=== PATIENT | female | born 1945 | race Caucasian/White ===

== ENCOUNTER 2021-10-02 16:01 | Inpatient (IN) | payer MEDICARE, OTHER ==
[~2021-10-02] VITALS: Ht 165.1 cm; Wt 98.0 kg
[2021-10-02] MEDS ORDERED: IOHEXOL 300 MG/ML 100ML BOTTLE IJ ONE (16:25)
[2021-10-02 18:23] LABS: Basophils # (auto) 0 10 ^3/uL (0-0.2); Basophils % (auto) 0.3 % (0.0-2.0); Eosinophils # (auto) 0 10 ^3/uL (0-0.8); Hematocrit 27.4 % (36.0-46.0); Hemoglobin 8.8 g/dL (12.2-16.2); Lymphocytes # (auto) 0.1 10 ^3/uL (0.4-5.4); Lymphocytes % (auto) 1.1 % (10.0-50.0); Mean Corpuscular Hemoglobin 29.3 pg (28.0-32.0); Mean Corpuscular Hgb Conc. 32.3 g/dL (32.0-36.0); Mean Corpuscular Volume 90.8 fL (80.0-100.0); Monocytes # (auto) 0.2 10 ^3/uL (0-1.3); Monocytes % (auto) 1.7 % (0.0-12.0); Neutrophils # (auto) 10.8 10 ^3/uL (1.6-8.6); Neutrophils % (auto) 96.9 % (37.0-80.0); Red Blood Cells 3.01 10^6/uL (4.0-5.20); Red Cell Distribution Width 19.6 % (11.8-14.3); White Blood Cell 11.2 10^3/uL (4.4-10.8)
[2021-10-02 18:37] LABS: INR 1.32 (0.9-1.15); Partial Thromboplastin Time 30.5 sec (23.6-33.0)
[2021-10-02 18:40] LABS: Calcium 8.5 mg/dL (8.5-10.1); Magnesium 2.1 mg/dL (1.6-2.6); Potassium 3.8 mmol/L (3.5-5.1)
[2021-10-02 18:47] LABS: BUN/Creatinine Ratio 24.6; Bilirubin, Total 1.3 mg/dL (0.2-1.0); Total Protein 6.3 g/dL (6.4-8.2)
[2021-10-02] MEDS ORDERED: ASPirin 325 MG TAB PO ONE (19:30)
[2021-10-02] MEDS ORDERED: METOPROLOL SUCCINATE XL 50 MG TAB PO ONE (20:15)
[2021-10-02] MEDS ORDERED: ONDANSETRON HCL 4 MG/2 ML VIAL IV ONE (22:15)
[2021-10-02] MEDS ORDERED: dilTIAZem 25 MG/5 ML VIAL IV ONE ×2 (22:15→22:31)
[2021-10-02] MEDS ORDERED: ONDANSETRON HCL 4 MG/2 ML VIAL ONE (22:16)
[2021-10-02] MEDS ORDERED: HEPARIN DRIP/D5W 100UNITS/ML 250 ML IV SCH (22:30)
[2021-10-02] MEDS ORDERED: MORPHINE SULFATE 4 MG/ML SYR/VIAL IV PRN (22:30)
[2021-10-02] MEDS ORDERED: MORPHINE SULFATE INJECTION 2 MG/ML SYRG IV PRN (22:30)
[2021-10-02] MEDS ORDERED: ONDANSETRON HCL 4 MG/2 ML VIAL IV PRN ×2 (22:30)
[2021-10-02] MEDS ORDERED: NITROGLYCERIN 0.4 MG SL TAB SL PRN ×2 (22:30)
[2021-10-02] MEDS ORDERED: CLOPIDOGREL 300 MG TAB PO ONE (22:30)
[2021-10-02] MEDS: METOPROLOL TARTRATE 50 MG TAB PO SCH (22:30)
[2021-10-02] MEDS ORDERED: DEXTROSE (50%) 50ML SYRG IV PRN (22:45)
[2021-10-02] MEDS ORDERED: CEFEPIME 2 GM in SODIUM CHL 0.9% 50 ML IV ONE (23:15)
[2021-10-02] MEDS ORDERED: AMIODARONE HCL 150 MG in D5W 5% 100 ML IV ONE (23:15)
[2021-10-02] MEDS ORDERED: AMIODARONE 450mg/250ml AE 250 ML IV SCH (23:15)
[2021-10-02] MEDS ORDERED: SODIUM CHLORIDE 0.9% 500 ML IV ONE (23:15)
[2021-10-03 00:02] LABS: Urine Bacteria FEW /hpf (None Seen); Urine Blood Negative /uL (Negative); Urine Budding Yeast MANY /hpf (None Seen); Urine Hyaline Cast FEW /lpf (0 - 2); Urine Mucus FEW (None Seen); Urine WBC 15 /hpf (0 - 5); Urine WBC Clumps PRESENT /hpf (None Seen)
[2021-10-03] MEDS ORDERED: AMIODARONE HCL (50 MG/ ML) 3 ML VIAL IV ONE (00:14)
[2021-10-03] MEDS ORDERED: FLUCONAZOLE 200MG/100ML 100 ML IV ONE (00:15)
[2021-10-03] MEDS: ACETAMINOPHEN 325 MG TAB PO PRN (00:17)
[2021-10-03] MEDS ORDERED: ACETAMINOPHEN 650 MG RECT SUPP PR ONE (00:30)
[2021-10-03] MEDS ORDERED: SODIUM CHLORIDE 0.9% 500 ML IV ONE (00:30)
[2021-10-03] MEDS ORDERED: NOREPINEPHRINE 8 MG/250ML KIT 250 ML IV ONE (02:50)
[2021-10-03] MEDS ORDERED: NOREPINEPHRINE 8 MG/250ML KIT 250 ML IV SCH (03:00)
[2021-10-03 07:04] LABS: Basophils # (auto) 0 10 ^3/uL (0-0.2); Basophils % (auto) 0.1 % (0.0-2.0); Eosinophils # (auto) 0 10 ^3/uL (0-0.8); Hemoglobin 9.7 g/dL (12.2-16.2); Lymphocytes # (auto) 0.1 10 ^3/uL (0.4-5.4); Lymphocytes % (auto) 1.3 % (10.0-50.0); Mean Corpuscular Hemoglobin 29.7 pg (28.0-32.0); Mean Corpuscular Hgb Conc. 33.4 g/dL (32.0-36.0); Mean Corpuscular Volume 89.1 fL (80.0-100.0); Monocytes # (auto) 0.3 10 ^3/uL (0-1.3); Monocytes % (auto) 3.1 % (0.0-12.0); Neutrophils # (auto) 10.2 10 ^3/uL (1.6-8.6); Neutrophils % (auto) 95.5 % (37.0-80.0); Red Blood Cells 3.25 10^6/uL (4.0-5.20); Red Cell Distribution Width 19.3 % (11.8-14.3); White Blood Cell 10.7 10^3/uL (4.4-10.8)
[2021-10-03 07:16] LABS: Calcium 8.3 mg/dL (8.5-10.1); Magnesium 2.1 mg/dL (1.6-2.6)
[2021-10-03 07:20] LABS: BUN/Creatinine Ratio 24.3; Bilirubin, Total 1.5 mg/dL (0.2-1.0); Total Protein 6.3 g/dL (6.4-8.2)
[2021-10-03] MEDS ORDERED: CEFEPIME 1 GM in SODIUM CHL 0.9% 50 ML IV SCH (08:00)
[2021-10-03] MEDS: ACCU-CHEK COMFORT CURVE STRIP VI SCH ×4 (08:18→22:03)
[2021-10-03] MEDS: CEFEPIME 1 GM in SODIUM CHL 0.9% 50 ML IV SCH (08:19)
[2021-10-03 08:39] LABS: INR 1.48 (0.9-1.15); Partial Thromboplastin Time 47.4 sec (23.6-33.0)
[2021-10-03] MEDS: InsuLIN REG 1unit/0.01ml Soln (100units/ml) SC SCH ×4 (09:03→22:03)
[2021-10-03] MEDS ORDERED: HEPARIN DRIP/D5W 100UNITS/ML 250 ML IV SCH (09:15)
[2021-10-03] MEDS ORDERED: LOSARTAN POTASSIUM 25 MG TAB PO SCH (10:00)
[2021-10-03] MEDS: ASPirin 81 mg TAB PO SCH ×2 (10:00→11:19)
[2021-10-03] MEDS: DOCUSATE SOD 100 MG CAP PO SCH ×2 (10:00→11:19)
[2021-10-03] MEDS: METOPROLOL TARTRATE 50 MG TAB PO SCH ×2 (10:00→21:20)
[2021-10-03] MEDS ORDERED: CLOPIDOGREL BISULFATE 75 MG TAB PO SCH (10:00)
[2021-10-03] MEDS: PANTOPRAZOLE 40 MG TAB PO SCH (11:19)
[2021-10-03] MEDS: FLUCONAZOLE 100 MG TAB PO SCH (11:20)
[2021-10-03 13:00] VITALS: BP 105/61
[2021-10-03] MEDS ORDERED: FUROSEMIDE 20 MG/2 ML VIAL IV ONE (13:15)
[2021-10-03] MEDS ORDERED: DOBUTamine 1000MCG/ML 250 ML IV SCH (13:15)
[2021-10-03] MEDS ORDERED: METO-158 PO (14:07)
[2021-10-03] MEDS ORDERED: VALS40TA2 PO (14:07)
[2021-10-03] MEDS ORDERED: DAPA1TAB4 PO (14:07)
[2021-10-03] MEDS ORDERED: DIGO0.1220 PO (14:07)
[2021-10-03] MEDS ORDERED: GLIP5TAB12 PO (14:07)
[2021-10-03] MEDS: DOBUTamine 1000MCG/ML 250 ML IV SCH (15:31)
[2021-10-03 16:19] LABS: INR 1.29 (0.9-1.15); Partial Thromboplastin Time 33.6 sec (23.6-33.0)
[2021-10-03] MEDS ORDERED: dilTIAZem 25 MG/5 ML VIAL IV ONE (16:30)
[2021-10-03 16:46] VITALS: BP 116/53
[2021-10-03 16:54] VITALS: BP 107/56
[2021-10-03] MEDS: FUROSEMIDE 20 MG/2 ML VIAL IV SCH (18:00)
[2021-10-03 18:50] VITALS: BP 122/68
[2021-10-03] MEDS: AMIODARONE HCL 200 MG TAB PO SCH (21:19)
[2021-10-03] MEDS: ATORVASTATIN 20 MG TAB PO SCH (21:20)
[2021-10-03 22:00] VITALS: BP 94/54
[2021-10-04] VITALS (13 sets, daily range): BP systolic 80–122; BP diastolic 51–66
[2021-10-04] MEDS: DOBUTamine 1000MCG/ML 250 ML IV SCH ×3 (00:31→10:47)
[2021-10-04] MEDS ORDERED: METOPROLOL TARTRATE 1MG/1ML-5ML VIAL IV ONE (02:15)
[2021-10-04] MEDS: ACETAMINOPHEN 325 MG TAB PO PRN (04:06)
[2021-10-04 05:46] LABS: Basophils # (auto) 0 10 ^3/uL (0-0.2); Basophils % (auto) 0.4 % (0.0-2.0); Eosinophils # (auto) 0 10 ^3/uL (0-0.8); Eosinophils % (auto) 0.1 % (0.0-7.0); Hematocrit 25.7 % (36.0-46.0); Hemoglobin 8.7 g/dL (12.2-16.2); Lymphocytes # (auto) 0.1 10 ^3/uL (0.4-5.4); Lymphocytes % (auto) 1.5 % (10.0-50.0); Mean Corpuscular Hemoglobin 29.4 pg (28.0-32.0); Mean Corpuscular Volume 86.3 fL (80.0-100.0); Monocytes # (auto) 0.3 10 ^3/uL (0-1.3); Monocytes % (auto) 4.9 % (0.0-12.0); Neutrophils # (auto) 4.9 10 ^3/uL (1.6-8.6); Neutrophils % (auto) 93.1 % (37.0-80.0); Nucleated Red Blood Cells % 0.5 %; Red Blood Cells 2.98 10^6/uL (4.0-5.20); Red Cell Distribution Width 19.3 % (11.8-14.3); White Blood Cell 5.2 10^3/uL (4.4-10.8)
[2021-10-04 06:02] LABS: INR 1.16 (0.9-1.15); Partial Thromboplastin Time 29.9 sec (23.6-33.0)
[2021-10-04 06:04] LABS: BUN/Creatinine Ratio 24.5; Calcium 8.3 mg/dL (8.5-10.1); Phosphorus 2.8 mg/dL (2.5-4.90); Potassium 3.6 mmol/L (3.5-5.1)
[2021-10-04] MEDS: InsuLIN REG 1unit/0.01ml Soln (100units/ml) SC SCH ×4 (06:23→22:41)
[2021-10-04] MEDS: FUROSEMIDE 20 MG/2 ML VIAL IV SCH (06:23)
[2021-10-04] MEDS: ACCU-CHEK COMFORT CURVE STRIP VI SCH ×4 (06:24→22:15)
[2021-10-04] MEDS: CEFEPIME 1 GM in SODIUM CHL 0.9% 50 ML IV SCH (08:48)
[2021-10-04] MEDS ORDERED: POTASSIUM CHL 20 Meq TABLET PO ONE (09:00)
[2021-10-04] MEDS: ASPirin 81 mg TAB PO SCH (10:00)
[2021-10-04] MEDS: DOCUSATE SOD 100 MG CAP PO SCH (10:00)
[2021-10-04] MEDS: AMIODARONE HCL 200 MG TAB PO SCH ×2 (10:11→22:39)
[2021-10-04] MEDS: FLUCONAZOLE 100 MG TAB PO SCH (10:11)
[2021-10-04] MEDS: PANTOPRAZOLE 40 MG TAB PO SCH (10:12)
[2021-10-04] MEDS ORDERED: CHOL20007 PO (10:48)
[2021-10-04] MEDS ORDERED: VITA400T4 PO (10:48)
[2021-10-04] MEDS ORDERED: DAPA1TAB4 PO (10:48)
[2021-10-04] MEDS ORDERED: METO-158 PO (10:48)
[2021-10-04] MEDS ORDERED: VALS1TAB57 PO (10:48)
[2021-10-04] MEDS ORDERED: DIGO0.1220 PO (10:48)
[2021-10-04] MEDS ORDERED: GLIP5TAB12 PO (10:48)
[2021-10-04] MEDS: DIGOXIN 0.125 MG TAB PO SCH (11:00)
[2021-10-04] MEDS: dilTIAZem HCL 180MG ER CAP PO SCH (11:16)
[2021-10-04] MEDS ORDERED: MICAFUNGIN SODIUM 100 MG in SODIUM CHL 0.9% 100 ML IV ONE (11:30)
[2021-10-04] MEDS ORDERED: IOHEXOL 350 MG/ML 100ML IJ ONE (13:00)
[2021-10-04] MEDS ORDERED: fentaNYL CITRATE 100 MCG/2 ML VL ONE (13:16)
[2021-10-04] MEDS ORDERED: MIDAZOLAM HCL 2MG/2ML 2ml VIAL (1mg/ml) ONE (13:16)
[2021-10-04] MEDS ORDERED: LIDOCAINE 2%HCL (LOCAL ANESTH.) INJ 20ML MDV ONE (13:34)
[2021-10-04] MEDS: POTASSIUM CHL 10MEQ/50ML 50 ML IV SCH ×4 (16:28→22:15)
[2021-10-04] MEDS: Glucerna Carbsteady SHAKE Vanilla 8oz PO SCH (18:00)
[2021-10-04 20:47] LABS: Urine Bacteria MANY /hpf (None Seen); Urine Blood 3+ /uL (Negative); Urine Budding Yeast MODERATE /hpf (None Seen); Urine Mucus FEW (None Seen); Urine Specific Gravity 1.032 (1.001-1.035); Urine WBC 78 /hpf (0 - 5); Urine WBC Clumps PRESENT /hpf (None Seen)
[2021-10-04 21:06] LABS: Protein, Urine 244.5 mg/dL (0.0-11.9)
[2021-10-04] MEDS: ATORVASTATIN 20 MG TAB PO SCH (22:40)
[2021-10-05] MEDS: DOBUTamine 1000MCG/ML 250 ML IV SCH (03:22)
[2021-10-05 05:00] VITALS: BP 123/67
[2021-10-05 06:03] LABS: Basophils # (auto) 0 10 ^3/uL (0-0.2); Basophils % (auto) 0.2 % (0.0-2.0); Eosinophils # (auto) 0 10 ^3/uL (0-0.8); Eosinophils % (auto) 0.1 % (0.0-7.0); Hematocrit 25.6 % (36.0-46.0); Hemoglobin 8.7 g/dL (12.2-16.2); Lymphocytes # (auto) 0.2 10 ^3/uL (0.4-5.4); Lymphocytes % (auto) 2.7 % (10.0-50.0); Mean Corpuscular Hemoglobin 29.4 pg (28.0-32.0); Mean Corpuscular Volume 86.4 fL (80.0-100.0); Monocytes # (auto) 0.7 10 ^3/uL (0-1.3); Monocytes % (auto) 11.1 % (0.0-12.0); Neutrophils # (auto) 5.2 10 ^3/uL (1.6-8.6); Neutrophils % (auto) 85.9 % (37.0-80.0); Nucleated Red Blood Cells % 0.1 %; Red Blood Cells 2.97 10^6/uL (4.0-5.20); Red Cell Distribution Width 19.2 % (11.8-14.3); White Blood Cell 6.1 10^3/uL (4.4-10.8)
[2021-10-05 06:18] LABS: BUN/Creatinine Ratio 28.1; Calcium 7.8 mg/dL (8.5-10.1); Potassium 4.5 mmol/L (3.5-5.1)
[2021-10-05] MEDS: ACCU-CHEK COMFORT CURVE STRIP VI SCH ×4 (06:49→21:31)
[2021-10-05] MEDS: InsuLIN REG 1unit/0.01ml Soln (100units/ml) SC SCH ×4 (06:49→22:06)
[2021-10-05 08:00] VITALS: BP_SYST 115; BP_SYST 91; BP_DIAS 47; BP_DIAS 64
[2021-10-05] MEDS: DOCUSATE SOD 100 MG CAP PO SCH ×2 (10:00→10:12)
[2021-10-05] MEDS: MICAFUNGIN SODIUM 100 MG in SODIUM CHL 0.9% 100 ML IV SCH (10:11)
[2021-10-05] MEDS: CEFEPIME 1 GM in SODIUM CHL 0.9% 50 ML IV SCH (10:11)
[2021-10-05] MEDS: Glucerna Carbsteady SHAKE Vanilla 8oz PO SCH ×2 (10:11→17:29)
[2021-10-05] MEDS: ASPirin 81 mg TAB PO SCH (10:12)
[2021-10-05] MEDS: dilTIAZem HCL 180MG ER CAP PO SCH (10:12)
[2021-10-05] MEDS: PANTOPRAZOLE 40 MG TAB PO SCH (10:13)
[2021-10-05] MEDS: FLUCONAZOLE 100 MG TAB PO SCH (10:13)
[2021-10-05] MEDS: AMIODARONE HCL 200 MG TAB PO SCH ×2 (10:13→21:31)
[2021-10-05 12:00] VITALS: BP 116/55
[2021-10-05 16:00] VITALS: BP 115/52
[2021-10-05 20:00] VITALS: BP 123/55
[2021-10-05] MEDS: ACETAMINOPHEN 325 MG TAB PO PRN (21:31)
[2021-10-05] MEDS: ATORVASTATIN 20 MG TAB PO SCH (21:31)
[2021-10-05 22:00] VITALS: BP 123/55
[2021-10-06 05:00] VITALS: BP 111/50
[2021-10-06 05:37] LABS: Basophils # (auto) 0 10 ^3/uL (0-0.2); Basophils % (auto) 0.2 % (0.0-2.0); Eosinophils # (auto) 0 10 ^3/uL (0-0.8); Eosinophils % (auto) 0.1 % (0.0-7.0); Hematocrit 28.7 % (36.0-46.0); Hemoglobin 9.5 g/dL (12.2-16.2); Lymphocytes # (auto) 0.5 10 ^3/uL (0.4-5.4); Mean Corpuscular Hgb Conc. 33.2 g/dL (32.0-36.0); Mean Corpuscular Volume 87.6 fL (80.0-100.0); Monocytes # (auto) 1.7 10 ^3/uL (0-1.3); Monocytes % (auto) 15.1 % (0.0-12.0); Neutrophils # (auto) 9.2 10 ^3/uL (1.6-8.6); Neutrophils % (auto) 80.6 % (37.0-80.0); Red Blood Cells 3.27 10^6/uL (4.0-5.20); White Blood Cell 11.4 10^3/uL (4.4-10.8)
[2021-10-06 05:40] LABS: Red Cell Distribution Width 20.2 % (11.8-14.3)
[2021-10-06 05:54] LABS: BUN/Creatinine Ratio 26.3; Calcium 8.6 mg/dL (8.5-10.1); Magnesium 2.4 mg/dL (1.6-2.6); Potassium 4.3 mmol/L (3.5-5.1)
[2021-10-06] MEDS: ACCU-CHEK COMFORT CURVE STRIP VI SCH ×4 (06:23→21:19)
[2021-10-06] MEDS: InsuLIN REG 1unit/0.01ml Soln (100units/ml) SC SCH ×4 (06:25→21:19)
[2021-10-06 08:00] VITALS: BP 121/61
[2021-10-06] MEDS: ACETAMINOPHEN 325 MG TAB PO PRN (08:23)
[2021-10-06] MEDS: CEFEPIME 1 GM in SODIUM CHL 0.9% 50 ML IV SCH (08:54)
[2021-10-06 08:56] VITALS: BP 121/61
[2021-10-06] MEDS: ENOXAPARIN SOD 30 MG/0.3 ML SYRINGE SC SCH (10:04)
[2021-10-06] MEDS: FLUCONAZOLE 100 MG TAB PO SCH (10:05)
[2021-10-06] MEDS: dilTIAZem HCL 180MG ER CAP PO SCH (10:05)
[2021-10-06] MEDS: AMIODARONE HCL 200 MG TAB PO SCH ×2 (10:06→21:18)
[2021-10-06] MEDS: ASPirin 81 mg TAB PO SCH (10:06)
[2021-10-06] MEDS: DOCUSATE SOD 100 MG CAP PO SCH (10:06)
[2021-10-06] MEDS: PANTOPRAZOLE 40 MG TAB PO SCH (10:06)
[2021-10-06] MEDS: Glucerna Carbsteady SHAKE Vanilla 8oz PO SCH ×2 (11:20→18:19)
[2021-10-06 11:47] LABS: Urine Bacteria FEW /hpf (None Seen); Urine Blood 2+ /uL (Negative); Urine Specific Gravity 1.022 (1.001-1.035); Urine WBC 252 /hpf (0 - 5)
[2021-10-06 13:00] VITALS: BP 107/65
[2021-10-06] MEDS: MICAFUNGIN SODIUM 100 MG in SODIUM CHL 0.9% 100 ML IV SCH (13:39)
[2021-10-06 17:14] VITALS: BP 101/51
[2021-10-06] MEDS: ATORVASTATIN 20 MG TAB PO SCH (21:18)
[2021-10-06 22:00] VITALS: BP 115/43
[2021-10-07 05:00] VITALS: BP 124/46
[2021-10-07] MEDS: InsuLIN REG 1unit/0.01ml Soln (100units/ml) SC SCH ×4 (06:16→22:18)
[2021-10-07] MEDS: ACCU-CHEK COMFORT CURVE STRIP VI SCH ×4 (06:50→22:18)
[2021-10-07 08:00] VITALS: BP 122/60
[2021-10-07] MEDS: CEFEPIME 1 GM in SODIUM CHL 0.9% 50 ML IV SCH (08:00)
[2021-10-07] MEDS: Glucerna Carbsteady SHAKE Vanilla 8oz PO SCH ×2 (08:00→18:25)
[2021-10-07] MEDS: MICAFUNGIN SODIUM 100 MG in SODIUM CHL 0.9% 100 ML IV SCH (10:00)
[2021-10-07] MEDS: PANTOPRAZOLE 40 MG TAB PO SCH (10:00)
[2021-10-07] MEDS: ASPirin 81 mg TAB PO SCH (10:00)
[2021-10-07] MEDS: DIGOXIN 0.125 MG TAB PO SCH (10:00)
[2021-10-07] MEDS: AMIODARONE HCL 200 MG TAB PO SCH ×2 (10:00→22:18)
[2021-10-07] MEDS: FLUCONAZOLE 100 MG TAB PO SCH (10:00)
[2021-10-07] MEDS: ENOXAPARIN SOD 30 MG/0.3 ML SYRINGE SC SCH (10:00)
[2021-10-07] MEDS: DOCUSATE SOD 100 MG CAP PO SCH (10:00)
[2021-10-07 13:00] VITALS: BP 116/52
[2021-10-07 22:00] VITALS: BP 124/51
[2021-10-07] MEDS: ATORVASTATIN 20 MG TAB PO SCH (22:00)
[2021-10-08 05:00] VITALS: BP 116/57
[2021-10-08] MEDS: InsuLIN REG 1unit/0.01ml Soln (100units/ml) SC SCH ×4 (06:06→22:49)
[2021-10-08 06:12] LABS: Mean Corpuscular Hemoglobin 29.9 pg (28.0-32.0); Mean Corpuscular Hgb Conc. 34.5 g/dL (32.0-36.0); Mean Corpuscular Volume 86.8 fL (80.0-100.0); Red Cell Distribution Width 19.5 % (11.8-14.3); White Blood Cell 9.9 10^3/uL (4.4-10.8)
[2021-10-08] MEDS: ACCU-CHEK COMFORT CURVE STRIP VI SCH ×4 (06:21→22:49)
[2021-10-08 06:23] LABS: INR 1.16 (0.9-1.15); Partial Thromboplastin Time 28.2 sec (23.6-33.0)
[2021-10-08 06:33] LABS: Basophils % (manual) 0 (0.0-2.0); Blast Cells 0; Promyelocytes % 0; Reactive Lymphocytes 0
[2021-10-08 06:34] LABS: Chloride 104 mmol/L (98-107); Potassium 3.9 mmol/L (3.5-5.1); Sodium 130 mmol/L (136-145)
[2021-10-08 06:40] LABS: Anion Gap 8 (5-15); BUN/Creatinine Ratio 35.1; Blood Urea Nitrogen 59 mg/dL (7-18); Calcium 8.3 mg/dL (8.5-10.1); Carbon Dioxide 18 mmol/L (21-32); GFR African American 38 mL/min; GFR Non-African American 32 mL/min; Glucose 176 mg/dL (74-106)
[2021-10-08] MEDS ORDERED: MIDAZOLAM HCL 2MG/2ML 2ml VIAL (1mg/ml) IV ONE (07:45)
[2021-10-08] MEDS ORDERED: fentaNYL CITRATE 100 MCG/2 ML VL IV ONE (07:45)
[2021-10-08] MEDS ORDERED: diphenhdrAMINE HCL 50 MG/1 ML VL IV ONE (07:45)
[2021-10-08] MEDS ORDERED: LIDOCAINE VISCOUS 2% 15ML UD PO ONE (07:45)
[2021-10-08 08:00] VITALS: BP 124/60
[2021-10-08] MEDS: Glucerna Carbsteady SHAKE Vanilla 8oz PO SCH ×2 (08:00→17:24)
[2021-10-08] MEDS: CEFEPIME 1 GM in SODIUM CHL 0.9% 50 ML IV SCH ×2 (08:00→22:50)
[2021-10-08 08:55] LABS: Band Neutrophils % (manual) 3; Eosinophils % (manual) 1 (0-7); Lymphocytes % (manual) 5 (10.0-50.0); Metamyelocytes % 1; Monocytes % (manual) 9 (0-12); Myelocytes % 1
[2021-10-08 09:22] VITALS: BP 126/66
[2021-10-08] MEDS: ASPirin 81 mg TAB PO SCH (09:57)
[2021-10-08] MEDS: ENOXAPARIN SOD 30 MG/0.3 ML SYRINGE SC SCH (10:00)
[2021-10-08] MEDS: MICAFUNGIN SODIUM 100 MG in SODIUM CHL 0.9% 100 ML IV SCH (10:00)
[2021-10-08] MEDS: dilTIAZem HCL 180MG ER CAP PO SCH (10:03)
[2021-10-08] MEDS: DOCUSATE SOD 100 MG CAP PO SCH (10:10)
[2021-10-08] MEDS: PANTOPRAZOLE 40 MG TAB PO SCH (10:10)
[2021-10-08] MEDS: AMIODARONE HCL 200 MG TAB PO SCH ×2 (10:10→22:48)
[2021-10-08] MEDS: FLUCONAZOLE 100 MG TAB PO SCH (10:10)
[2021-10-08 12:21] VITALS: BP 127/58
[2021-10-08] MEDS ORDERED: LIDOCAINE 1% HCL (LOCAL ANESTH.) INJ 20ML MDV ONE (12:24)
[2021-10-08] MEDS ORDERED: BUPIVACAINE W/ EPINEPH 0.25% INJ 50ML MDV ONE (12:24)
[2021-10-08] MEDS ORDERED: PROPOFOL 10 MG/ML 20 ML IV ONE (12:38)
[2021-10-08] MEDS ORDERED: MIDAZOLAM HCL 2MG/2ML 2ml VIAL (1mg/ml) ONE (12:38)
[2021-10-08] MEDS ORDERED: fentaNYL CITRATE 100 MCG/2 ML VL ONE (12:38)
[2021-10-08] MEDS ORDERED: ONDANSETRON HCL 4 MG/2 ML VIAL ONE (12:38)
[2021-10-08] MEDS ORDERED: LIDOCAINE 2% (LOCAL ANESTH.) PF 5ml SDV ONE (12:38)
[2021-10-08] MEDS ORDERED: ceFAZolin 1GM/50ML 50 ML IV ONE (12:40)
[2021-10-08] MEDS ORDERED: ONDANSETRON HCL 4 MG/2 ML VIAL IV PRN (13:45)
[2021-10-08] MEDS ORDERED: HYDROmorphone HCL 2 MG/ML VL IV PRN (13:45)
[2021-10-08 16:35] VITALS: BP 127/55
[2021-10-08 22:00] VITALS: BP 123/53
[2021-10-08] MEDS: ATORVASTATIN 20 MG TAB PO SCH (22:00)
[2021-10-09 05:00] VITALS: BP 128/59
[2021-10-09] MEDS: ACCU-CHEK COMFORT CURVE STRIP VI SCH ×4 (06:12→21:58)
[2021-10-09] MEDS: InsuLIN REG 1unit/0.01ml Soln (100units/ml) SC SCH ×4 (06:12→22:03)
[2021-10-09] MEDS: Glucerna Carbsteady SHAKE Vanilla 8oz PO SCH ×2 (08:00→18:00)
[2021-10-09 09:00] VITALS: BP 116/92
[2021-10-09] MEDS: ASPirin 81 mg TAB PO SCH (10:00)
[2021-10-09] MEDS: DOCUSATE SOD 100 MG CAP PO SCH (10:00)
[2021-10-09] MEDS: MICAFUNGIN SODIUM 100 MG in SODIUM CHL 0.9% 100 ML IV SCH (10:00)
[2021-10-09] MEDS: dilTIAZem HCL 180MG ER CAP PO SCH (11:05)
[2021-10-09] MEDS: ENOXAPARIN SOD 30 MG/0.3 ML SYRINGE SC SCH (11:06)
[2021-10-09] MEDS: AMIODARONE HCL 200 MG TAB PO SCH ×2 (11:07→22:04)
[2021-10-09] MEDS: DIGOXIN 0.125 MG TAB PO SCH (11:08)
[2021-10-09] MEDS: PANTOPRAZOLE 40 MG TAB PO SCH (11:08)
[2021-10-09] MEDS: CEFEPIME 1 GM in SODIUM CHL 0.9% 50 ML IV SCH ×2 (11:20→23:31)
[2021-10-09 13:00] VITALS: BP 131/95
[2021-10-09 16:52] VITALS: BP 109/57
[2021-10-09 21:51] VITALS: BP 130/60
[2021-10-09] MEDS: ATORVASTATIN 20 MG TAB PO SCH (22:00)
[2021-10-09] MEDS: ACETAMINOPHEN 325 MG TAB PO PRN (22:07)
[2021-10-10 05:41] VITALS: BP 114/53
[2021-10-10] MEDS: ACCU-CHEK COMFORT CURVE STRIP VI SCH ×4 (06:15→21:57)
[2021-10-10] MEDS: InsuLIN REG 1unit/0.01ml Soln (100units/ml) SC SCH ×4 (06:15→22:00)
[2021-10-10] MEDS: Glucerna Carbsteady SHAKE Vanilla 8oz PO SCH ×2 (08:00→18:00)
[2021-10-10 09:00] VITALS: BP 144/60
[2021-10-10] MEDS: DOCUSATE SOD 100 MG CAP PO SCH (10:00)
[2021-10-10] MEDS: MICAFUNGIN SODIUM 100 MG in SODIUM CHL 0.9% 100 ML IV SCH (10:30)
[2021-10-10] MEDS: ASPirin 81 mg TAB PO SCH (10:47)
[2021-10-10] MEDS: AMIODARONE HCL 200 MG TAB PO SCH ×2 (10:48→21:57)
[2021-10-10] MEDS: PANTOPRAZOLE 40 MG TAB PO SCH (10:48)
[2021-10-10] MEDS: dilTIAZem HCL 180MG ER CAP PO SCH (10:49)
[2021-10-10] MEDS: CEFEPIME 1 GM in SODIUM CHL 0.9% 50 ML IV SCH ×2 (11:00→23:00)
[2021-10-10] MEDS: ENOXAPARIN SOD 30 MG/0.3 ML SYRINGE SC SCH (12:00)
[2021-10-10 13:00] VITALS: BP 122/61
[2021-10-10 17:00] VITALS: BP 126/52
[2021-10-10] MEDS: ATORVASTATIN 20 MG TAB PO SCH (21:57)
[2021-10-10 22:00] VITALS: BP 139/63
[2021-10-11 05:00] VITALS: BP 106/56
[2021-10-11] MEDS: ACCU-CHEK COMFORT CURVE STRIP VI SCH ×4 (06:19→21:38)
[2021-10-11] MEDS: InsuLIN REG 1unit/0.01ml Soln (100units/ml) SC SCH ×5 (06:29→21:40)
[2021-10-11] MEDS: Glucerna Carbsteady SHAKE Vanilla 8oz PO SCH ×2 (08:31→19:04)
[2021-10-11 09:00] VITALS: BP 120/61
[2021-10-11 09:37] LABS: Basophils # (auto) 0.1 10 ^3/uL (0-0.2); Eosinophils # (auto) 0.1 10 ^3/uL (0-0.8); Eosinophils % (auto) 0.3 % (0.0-7.0); Hemoglobin 7.9 g/dL (12.2-16.2)
[2021-10-11 09:39] LABS: Basophils % (auto) 0.3 % (0.0-2.0); Hematocrit 23.9 % (36.0-46.0); Lymphocytes # (auto) 0.4 10 ^3/uL (0.4-5.4); Lymphocytes % (auto) 2.3 % (10.0-50.0); Mean Corpuscular Hemoglobin 28.7 pg (28.0-32.0); Mean Corpuscular Hgb Conc. 33.1 g/dL (32.0-36.0); Mean Corpuscular Volume 86.7 fL (80.0-100.0); Monocytes # (auto) 1.5 10 ^3/uL (0-1.3); Monocytes % (auto) 7.6 % (0.0-12.0); Neutrophils # (auto) 17.3 10 ^3/uL (1.6-8.6); Neutrophils % (auto) 89.5 % (37.0-80.0); Red Blood Cells 2.76 10^6/uL (4.0-5.20); Red Cell Distribution Width 19.4 % (11.8-14.3); White Blood Cell 19.3 10^3/uL (4.4-10.8)
[2021-10-11] MEDS: MICAFUNGIN SODIUM 100 MG in SODIUM CHL 0.9% 100 ML IV SCH (09:40)
[2021-10-11] MEDS: ASPirin 81 mg TAB PO SCH (09:41)
[2021-10-11] MEDS: dilTIAZem HCL 180MG ER CAP PO SCH (09:42)
[2021-10-11] MEDS: AMIODARONE HCL 200 MG TAB PO SCH ×2 (09:42→21:38)
[2021-10-11] MEDS: DIGOXIN 0.125 MG TAB PO SCH (09:43)
[2021-10-11] MEDS: PANTOPRAZOLE 40 MG TAB PO SCH (09:43)
[2021-10-11] MEDS: ENOXAPARIN SOD 30 MG/0.3 ML SYRINGE SC SCH (09:43)
[2021-10-11 09:56] LABS: Potassium 4.4 mmol/L (3.5-5.1)
[2021-10-11] MEDS: DOCUSATE SOD 100 MG CAP PO SCH (10:00)
[2021-10-11 10:12] LABS: Albumin 2.1 g/dL (3.4-5.0); Bilirubin, Total 0.6 mg/dL (0.2-1.0); Calcium 8.7 mg/dL (8.5-10.1); Total Protein 5.6 g/dL (6.4-8.2)
[2021-10-11] MEDS: CEFEPIME 1 GM in SODIUM CHL 0.9% 50 ML IV SCH ×2 (12:01→23:27)
[2021-10-11 13:00] VITALS: BP 119/57
[2021-10-11 17:00] VITALS: BP 122/56
[2021-10-11] MEDS: ATORVASTATIN 20 MG TAB PO SCH (21:37)
[2021-10-11 22:00] VITALS: BP 115/43
[2021-10-12 05:00] VITALS: BP 132/65
[2021-10-12] MEDS: ACCU-CHEK COMFORT CURVE STRIP VI SCH ×4 (06:15→22:22)
[2021-10-12] MEDS: InsuLIN REG 1unit/0.01ml Soln (100units/ml) SC SCH ×4 (06:25→22:22)
[2021-10-12] MEDS: Glucerna Carbsteady SHAKE Vanilla 8oz PO SCH ×2 (08:00→18:12)
[2021-10-12 09:00] VITALS: BP 122/67
[2021-10-12] MEDS: DOCUSATE SOD 100 MG CAP PO SCH (09:58)
[2021-10-12] MEDS: ENOXAPARIN SOD 30 MG/0.3 ML SYRINGE SC SCH (10:00)
[2021-10-12] MEDS: PANTOPRAZOLE 40 MG TAB PO SCH (10:20)
[2021-10-12] MEDS: AMIODARONE HCL 200 MG TAB PO SCH ×2 (10:20→22:23)
[2021-10-12] MEDS: MICAFUNGIN SODIUM 100 MG in SODIUM CHL 0.9% 100 ML IV SCH (10:20)
[2021-10-12] MEDS: ASPirin 81 mg TAB PO SCH (10:20)
[2021-10-12] MEDS: dilTIAZem HCL 180MG ER CAP PO SCH (10:20)
[2021-10-12] MEDS: CEFEPIME 1 GM in SODIUM CHL 0.9% 50 ML IV SCH ×2 (11:00→23:53)
[2021-10-12 12:04] LABS: Basophils # (auto) 0.1 10 ^3/uL (0-0.2); Basophils % (auto) 0.4 % (0.0-2.0); Eosinophils # (auto) 0.1 10 ^3/uL (0-0.8); Eosinophils % (auto) 0.4 % (0.0-7.0); Hematocrit 26.7 % (36.0-46.0); Hemoglobin 8.5 g/dL (12.2-16.2); Lymphocytes # (auto) 0.5 10 ^3/uL (0.4-5.4); Lymphocytes % (auto) 3.1 % (10.0-50.0); Mean Corpuscular Volume 87.4 fL (80.0-100.0); Monocytes % (auto) 6.7 % (0.0-12.0); Neutrophils # (auto) 13.2 10 ^3/uL (1.6-8.6); Neutrophils % (auto) 89.4 % (37.0-80.0); Red Blood Cells 3.06 10^6/uL (4.0-5.20); Red Cell Distribution Width 19.3 % (11.8-14.3); White Blood Cell 14.7 10^3/uL (4.4-10.8)
[2021-10-12 13:00] VITALS: BP 125/62
[2021-10-12 15:41] LABS: INR 1.16 (0.9-1.15); Partial Thromboplastin Time 29.9 sec (23.6-33.0)
[2021-10-12 17:00] VITALS: BP 107/65
[2021-10-12 22:00] VITALS: BP 113/65
[2021-10-12] MEDS: ATORVASTATIN 20 MG TAB PO SCH (22:22)
[2021-10-13 05:00] VITALS: BP 123/73
[2021-10-13 05:37] LABS: Basophils # (auto) 0.1 10 ^3/uL (0-0.2); Basophils % (auto) 0.4 % (0.0-2.0); Eosinophils # (auto) 0.1 10 ^3/uL (0-0.8); Eosinophils % (auto) 0.6 % (0.0-7.0); Hematocrit 26.1 % (36.0-46.0); Hemoglobin 8.6 g/dL (12.2-16.2); Lymphocytes # (auto) 0.6 10 ^3/uL (0.4-5.4); Lymphocytes % (auto) 4.4 % (10.0-50.0); Mean Corpuscular Hemoglobin 28.2 pg (28.0-32.0); Mean Corpuscular Hgb Conc. 32.8 g/dL (32.0-36.0); Monocytes # (auto) 1.2 10 ^3/uL (0-1.3); Monocytes % (auto) 8.2 % (0.0-12.0); Neutrophils # (auto) 12.7 10 ^3/uL (1.6-8.6); Neutrophils % (auto) 86.4 % (37.0-80.0); Red Blood Cells 3.04 10^6/uL (4.0-5.20); Red Cell Distribution Width 19.2 % (11.8-14.3); White Blood Cell 14.7 10^3/uL (4.4-10.8)
[2021-10-13 05:59] LABS: Potassium 4.6 mmol/L (3.5-5.1)
[2021-10-13 06:08] LABS: BUN/Creatinine Ratio 28.7; Calcium 8.8 mg/dL (8.5-10.1)
[2021-10-13] MEDS: InsuLIN REG 1unit/0.01ml Soln (100units/ml) SC SCH ×4 (06:49→22:20)
[2021-10-13] MEDS: ACCU-CHEK COMFORT CURVE STRIP VI SCH ×4 (06:51→22:15)
[2021-10-13] MEDS: Glucerna Carbsteady SHAKE Vanilla 8oz PO SCH (08:00)
[2021-10-13 09:00] VITALS: BP 131/64
[2021-10-13] MEDS: DOCUSATE SOD 100 MG CAP PO SCH (10:00)
[2021-10-13] MEDS: ASPirin 81 mg TAB PO SCH (10:35)
[2021-10-13] MEDS: dilTIAZem HCL 180MG ER CAP PO SCH (10:35)
[2021-10-13] MEDS: MICAFUNGIN SODIUM 100 MG in SODIUM CHL 0.9% 100 ML IV SCH (10:35)
[2021-10-13] MEDS: ENOXAPARIN SOD 30 MG/0.3 ML SYRINGE SC SCH (10:36)
[2021-10-13] MEDS: PANTOPRAZOLE 40 MG TAB PO SCH (10:36)
[2021-10-13] MEDS: AMIODARONE HCL 200 MG TAB PO SCH ×2 (10:36→22:08)
[2021-10-13] MEDS: CEFEPIME 1 GM in SODIUM CHL 0.9% 50 ML IV SCH ×2 (11:00→22:48)
[2021-10-13 13:00] VITALS: BP 125/47
[2021-10-13 17:12] VITALS: BP 112/40
[2021-10-13 20:00] VITALS: BP 126/69
[2021-10-13 22:00] VITALS: BP 126/69
[2021-10-13] MEDS: ATORVASTATIN 20 MG TAB PO SCH ×2 (22:08→22:18)
[2021-10-14 05:00] VITALS: BP 135/64
[2021-10-14] MEDS: ACCU-CHEK COMFORT CURVE STRIP VI SCH ×4 (06:18→21:26)
[2021-10-14] MEDS: InsuLIN REG 1unit/0.01ml Soln (100units/ml) SC SCH ×4 (06:20→21:38)
[2021-10-14] MEDS: Glucerna Carbsteady SHAKE Vanilla 8oz PO SCH ×3 (06:54→18:00)
[2021-10-14 08:00] VITALS: BP 148/73
[2021-10-14] MEDS: dilTIAZem HCL 180MG ER CAP PO SCH (09:46)
[2021-10-14] MEDS: DOCUSATE SOD 100 MG CAP PO SCH (09:46)
[2021-10-14] MEDS: ASPirin 81 mg TAB PO SCH (09:46)
[2021-10-14] MEDS: MICAFUNGIN SODIUM 100 MG in SODIUM CHL 0.9% 100 ML IV SCH (09:46)
[2021-10-14] MEDS: AMIODARONE HCL 200 MG TAB PO SCH ×2 (09:48→21:38)
[2021-10-14] MEDS: DIGOXIN 0.125 MG TAB PO SCH (09:49)
[2021-10-14] MEDS: ENOXAPARIN SOD 30 MG/0.3 ML SYRINGE SC SCH (09:49)
[2021-10-14] MEDS: PANTOPRAZOLE 40 MG TAB PO SCH (09:49)
[2021-10-14 12:00] VITALS: BP 128/47
[2021-10-14 16:00] VITALS: BP 144/61
[2021-10-14] MEDS ORDERED: LIDOCAINE 1% (LOCAL ANESTH.) PF 5ml SDV ID ONE (17:45)
[2021-10-14 20:00] VITALS: BP 130/55
[2021-10-14] MEDS: SODIUM CHLOR 0.9% PF (SALINE LOCK) 10ML VIAL/SYR IV SCH (21:43)
[2021-10-14 22:00] VITALS: BP 130/55
[2021-10-15 05:00] VITALS: BP 144/68
[2021-10-15 05:55] LABS: Basophils # (auto) 0.1 10 ^3/uL (0-0.2); Basophils % (auto) 0.7 % (0.0-2.0); Eosinophils # (auto) 0 10 ^3/uL (0-0.8); Eosinophils % (auto) 0.1 % (0.0-7.0); Hemoglobin 8.3 g/dL (12.2-16.2); Lymphocytes # (auto) 0.4 10 ^3/uL (0.4-5.4); Lymphocytes % (auto) 2.2 % (10.0-50.0); Mean Corpuscular Hemoglobin 28.6 pg (28.0-32.0); Mean Corpuscular Hgb Conc. 33.4 g/dL (32.0-36.0); Mean Corpuscular Volume 85.7 fL (80.0-100.0); Monocytes # (auto) 1.1 10 ^3/uL (0-1.3); Monocytes % (auto) 5.8 % (0.0-12.0); Neutrophils # (auto) 16.9 10 ^3/uL (1.6-8.6); Neutrophils % (auto) 91.2 % (37.0-80.0); Red Blood Cells 2.92 10^6/uL (4.0-5.20); Red Cell Distribution Width 19.5 % (11.8-14.3); White Blood Cell 18.6 10^3/uL (4.4-10.8)
[2021-10-15 06:13] LABS: BUN/Creatinine Ratio 21.1; Calcium 8.8 mg/dL (8.5-10.1); Potassium 5.1 mmol/L (3.5-5.1)
[2021-10-15] MEDS: ACCU-CHEK COMFORT CURVE STRIP VI SCH ×4 (06:36→22:08)
[2021-10-15] MEDS: InsuLIN REG 1unit/0.01ml Soln (100units/ml) SC SCH ×4 (06:58→22:13)
[2021-10-15 08:00] VITALS: BP 128/52
[2021-10-15] MEDS: ACETAMINOPHEN 325 MG TAB PO PRN (10:42)
[2021-10-15] MEDS: Glucerna Carbsteady SHAKE Vanilla 8oz PO SCH (10:51)
[2021-10-15] MEDS: MICAFUNGIN SODIUM 100 MG in SODIUM CHL 0.9% 100 ML IV SCH (10:51)
[2021-10-15] MEDS: ASPirin 81 mg TAB PO SCH (10:52)
[2021-10-15] MEDS: DOCUSATE SOD 100 MG CAP PO SCH (10:52)
[2021-10-15] MEDS: AMIODARONE HCL 200 MG TAB PO SCH ×2 (10:52→22:08)
[2021-10-15 12:00] VITALS: BP 120/67
[2021-10-15] MEDS: SODIUM CHLOR 0.9% PF (SALINE LOCK) 10ML VIAL/SYR IV SCH ×2 (13:00→22:07)
[2021-10-15] MEDS: PANTOPRAZOLE 40 MG TAB PO SCH (13:01)
[2021-10-15] MEDS: dilTIAZem HCL 180MG ER CAP PO SCH (13:01)
[2021-10-15] MEDS: ENOXAPARIN SOD 30 MG/0.3 ML SYRINGE SC SCH (13:01)
[2021-10-15 16:00] VITALS: BP 144/81
[2021-10-15] MEDS ORDERED: ONDANSETRON HCL 4 MG/2 ML VIAL IV PRN (16:00)
[2021-10-15] MEDS ORDERED: ACETAMINOPHEN 325 MG TAB PO PRN (16:00)
[2021-10-15] MEDS ORDERED: IBUPROFEN 400 MG TAB PO PRN (16:15)
[2021-10-15] MEDS ORDERED: dilTIAZem 25 MG/5 ML VIAL IV ONE (16:15)
[2021-10-15 22:00] VITALS: BP 98/52
[2021-10-15] MEDS: ATORVASTATIN 20 MG TAB PO SCH (22:00)
[2021-10-16 05:00] VITALS: BP 120/52
[2021-10-16 05:40] LABS: Basophils # (auto) 0.1 10 ^3/uL (0-0.2); Basophils % (auto) 0.6 % (0.0-2.0); Eosinophils # (auto) 0.1 10 ^3/uL (0-0.8); Eosinophils % (auto) 0.5 % (0.0-7.0); Lymphocytes # (auto) 0.4 10 ^3/uL (0.4-5.4); Lymphocytes % (auto) 3.2 % (10.0-50.0); Monocytes # (auto) 0.8 10 ^3/uL (0-1.3); Red Blood Cells 2.61 10^6/uL (4.0-5.20)
[2021-10-16 05:43] LABS: Hematocrit 22.4 % (36.0-46.0); Hemoglobin 7.9 g/dL (12.2-16.2); Mean Corpuscular Hemoglobin 30.1 pg (28.0-32.0); Mean Corpuscular Volume 85.9 fL (80.0-100.0); Monocytes % (auto) 5.8 % (0.0-12.0); Neutrophils # (auto) 12.1 10 ^3/uL (1.6-8.6); Neutrophils % (auto) 89.9 % (37.0-80.0); Red Cell Distribution Width 19.5 % (11.8-14.3); White Blood Cell 13.4 10^3/uL (4.4-10.8)
[2021-10-16] MEDS: ACCU-CHEK COMFORT CURVE STRIP VI SCH ×2 (06:11→12:07)
[2021-10-16] MEDS: InsuLIN REG 1unit/0.01ml Soln (100units/ml) SC SCH ×2 (06:16→12:45)
[2021-10-16 08:00] VITALS: BP 119/61
[2021-10-16] MEDS: Glucerna Carbsteady SHAKE Vanilla 8oz PO SCH (08:00)
[2021-10-16] MEDS: SODIUM CHLOR 0.9% PF (SALINE LOCK) 10ML VIAL/SYR IV SCH (10:00)
[2021-10-16] MEDS: ASPirin 81 mg TAB PO SCH (11:11)
[2021-10-16] MEDS: MICAFUNGIN SODIUM 100 MG in SODIUM CHL 0.9% 100 ML IV SCH (11:11)
[2021-10-16] MEDS: DOCUSATE SOD 100 MG CAP PO SCH (11:12)
[2021-10-16] MEDS: dilTIAZem HCL 180MG ER CAP PO SCH (11:12)
[2021-10-16] MEDS: ENOXAPARIN SOD 30 MG/0.3 ML SYRINGE SC SCH (11:13)
[2021-10-16] MEDS: AMIODARONE HCL 200 MG TAB PO SCH (11:13)
[2021-10-16] MEDS: PANTOPRAZOLE 40 MG TAB PO SCH (11:13)
[2021-10-16] MEDS: DIGOXIN 0.125 MG TAB PO SCH (11:13)
[2021-10-16 13:01] VITALS: BP 113/60
== END 2021-10-16 18:00 | disposition home health service (06) | DRG 280 ==
LOC: ER 16:01 → EDBD 16:01 → TELE 22:18 → TELE-CENTR 23:46 → TELE 23:58 → TELE-EAST 10-03 14:52 → TELE-CENTR 10-09 18:38
PROVIDERS: ADMIT Internal Medicine; ATTEND Internal Medicine
PROC: 0T9030Z Drainage of Right Kidney with Drainage Device, Percutaneous Approach (ICD-10-PCS; 2021-10-04)
PROC: BT1DYZZ Fluoroscopy of Right Kidney, Ureter and Bladder using Other Contrast (ICD-10-PCS; 2021-10-04)
PROC: BT41ZZZ Ultrasonography of Right Kidney (ICD-10-PCS; 2021-10-04)
PROC: B246ZZ4 Ultrasonography of Right and Left Heart, Transesophageal (ICD-10-PCS; 2021-10-08)
PROC: 0JPT0WZ Removal of Totally Implantable Vascular Access Device from Trunk Subcutaneous Tissue and Fascia, Open Approach (ICD-10-PCS; principal; 2021-10-08 12:40)
PROC: 02HV33Z Insertion of Infusion Device into Superior Vena Cava, Percutaneous Approach (ICD-10-PCS; 2021-10-14)
DX: T80.219A Unspecified infection due to central venous catheter, initial encounter (principal); A41.9 Sepsis, unspecified organism; I21.A1 Myocardial infarction type 2; R57.0 Cardiogenic shock; N17.0 Acute kidney failure with tubular necrosis; I50.23 Acute on chronic systolic (congestive) heart failure; E87.1 Hypo-osmolality and hyponatremia; C56.9 Malignant neoplasm of unspecified ovary; B49 Unspecified mycosis; I13.0 Hypertensive heart and chronic kidney disease with heart failure and stage 1 through stage 4 chronic kidney disease, or unspecified chronic kidney disease; D68.59 Other primary thrombophilia; N13.1 Hydronephrosis with ureteral stricture, not elsewhere classified; I48.91 Unspecified atrial fibrillation; E11.65 Type 2 diabetes mellitus with hyperglycemia; D63.1 Anemia in chronic kidney disease; E66.01 Morbid (severe) obesity due to excess calories; N18.9 Chronic kidney disease, unspecified; R29.6 Repeated falls; R19.00 Intra-abdominal and pelvic swelling, mass and lump, unspecified site; E11.22 Type 2 diabetes mellitus with diabetic chronic kidney disease; I08.1 Rheumatic disorders of both mitral and tricuspid valves; R04.0 Epistaxis; Y84.8 Other medical procedures as the cause of abnormal reaction of the patient, or of later complication, without mention of misadventure at the time of the procedure; Y92.89 Other specified places as the place of occurrence of the external cause; Z91.81 History of falling; Z85.43 Personal history of malignant neoplasm of ovary; Z90.710 Acquired absence of both cervix and uterus; Z92.21 Personal history of antineoplastic chemotherapy; Z79.899 Other long term (current) drug therapy; Z68.36 Body mass index [BMI] 36.0-36.9, adult; Z79.84 Long term (current) use of oral hypoglycemic drugs
CPT/HCPCS: 36415; 36569; 36600; 50432; 70450; 71045; 71260; 72125; 74177; 74425; 76000; 76775; 76942; 80048; 80053; 80061; 80162; 81001; 82010; 82550; 82565; 82570; 82805; 82962; 83036; 83605; 83735; 83880; 84100; 84156; 84300; 84443; 84484; 85007; 85025; 85027; 85610; 85730; 86850; 86900; 86901; 87040; 87086; 87088; 87804; 93005; 93306; 93312; 96361; 96365; 96367; 96368; 96375; 97116; 97163; 97530; 99152; C1729; G0378; J0690; J1450; J1815; J2001; J2248; J2250; J2405; J2704; J7060